=== PATIENT | female | born 1980 | race American Indian/Alaskan Native ===

== ENCOUNTER 2021-07-11 14:22 | Emergency (ER) | payer SELFPAY ==
--- NOTE | 2021-07-11 18:49 | XRay Report ---
LEFT HAND 3 VIEW(S) INDICATION / CLINICAL INFORMATION: fracture . Left hand pain. COMPARISON: None available. FINDINGS: BONES / JOINT(S): No acute fracture or subluxation. Mild radiocarpal degenerative arthrosis. SOFT TISSUES: Moderate soft tissue swelling along the dorsum of the wrist and hand over the metacarpa ls. ADDITIONAL FINDINGS: None. IMPRESSION: 1. No acute fracture. Moderate dorsal soft tissue swelling. Signer Name: Krista Hernandez MD Signed: 07/11/2021 6:44 PM Workstation Name: [id number]
[2021-07-11] MEDS ORDERED: ACETAMINOPHEN 500 MG TAB PO ONE (21:07)
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
[2021-07-11 22:47] VITALS: BP 126/86
== END 2021-07-11 23:17 | disposition home or self-care (01) ==
LOC: ED 14:22
DX: S66.912A Strain of unspecified muscle, fascia and tendon at wrist and hand level, left hand, initial encounter (principal); S63.92XA Sprain of unspecified part of left wrist and hand, initial encounter; F12.90 Cannabis use, unspecified, uncomplicated; F17.200 Nicotine dependence, unspecified, uncomplicated; X58.XXXA Exposure to other specified factors, initial encounter; Y93.89 Activity, other specified; Y92.89 Other specified places as the place of occurrence of the external cause; Y99.8 Other external cause status
CPT/HCPCS: 99283